=== PATIENT | male | born 1975 | race Caucasian/White ===

== ENCOUNTER 2020-03-07 14:01 | Outpatient (REF) | payer OTHER, SELFPAY | END 2020-03-07 14:02 | disposition home or self-care (01) | LOC: HO.BBR 14:01 | PROVIDERS: PCP Internal Medicine; Visit Provider Internal Medicine Gastroenterology | DX: E83.110 Hereditary hemochromatosis (principal) | CPT/HCPCS: 99195 ==

== ENCOUNTER 2020-04-08 14:38 | Outpatient (REF) | payer OTHER, SELFPAY | END 2020-04-08 14:39 | disposition home or self-care (01) | LOC: HO.BBR 14:38 | PROVIDERS: Visit Provider Internal Medicine Gastroenterology | DX: Z13.89 Encounter for screening for other disorder (principal) ==

== ENCOUNTER 2020-04-08 15:15 | Outpatient (REF) | payer SELFPAY ==
[2020-04-08 16:34] LABS: Cholesterol 171 mg/dL
[2020-04-08 17:24] LABS: SARS COV2 IgG Negative (Negative)
== END 2020-04-08 15:16 | disposition home or self-care (01) ==
LOC: HO.LNC 15:15
PROVIDERS: Visit Provider Pathology Anatomic Pathology & Clinical Pathology
DX: E78.00 Pure hypercholesterolemia, unspecified (principal); Z20.828 Contact with and (suspected) exposure to other viral communicable diseases
CPT/HCPCS: 82465; 86769

== ENCOUNTER 2020-05-08 14:00 | Outpatient (REF) | payer OTHER, SELFPAY | END 2020-05-08 14:01 | disposition home or self-care (01) | LOC: HO.BBR 14:00 | PROVIDERS: Visit Provider Internal Medicine Gastroenterology | DX: Z13.89 Encounter for screening for other disorder (principal) ==

== ENCOUNTER 2020-05-08 14:20 | Outpatient (REF) | payer SELFPAY ==
[2020-05-08 15:13] LABS: Cholesterol 166 mg/dL
== END 2020-05-08 14:21 | disposition home or self-care (01) ==
LOC: HO.LNC 14:20
PROVIDERS: Visit Provider Pathology Anatomic Pathology & Clinical Pathology
DX: Z13.89 Encounter for screening for other disorder (principal)
CPT/HCPCS: 82465

== ENCOUNTER 2020-06-12 14:03 | Outpatient (REF) | payer OTHER, SELFPAY | END 2020-06-12 14:04 | disposition home or self-care (01) | LOC: HO.BBR 14:03 | PROVIDERS: Visit Provider Internal Medicine Gastroenterology | DX: Z13.89 Encounter for screening for other disorder (principal) ==

== ENCOUNTER 2020-11-04 15:11 | Outpatient (REF) | payer OTHER, SELFPAY | END 2020-11-04 15:12 | disposition home or self-care (01) | LOC: HO.BBR 15:11 | PROVIDERS: Visit Provider Nurse Practitioner | DX: Z13.89 Encounter for screening for other disorder (principal) ==

== ENCOUNTER 2021-01-13 13:01 | Outpatient (REF) | payer OTHER, SELFPAY | END 2021-01-13 13:02 | disposition home or self-care (01) | LOC: HO.BBR 13:01 | PROVIDERS: Visit Provider Nurse Practitioner | DX: Z13.89 Encounter for screening for other disorder (principal) ==

== ENCOUNTER 2021-10-02 12:00 | Outpatient (REF) | payer OTHER, SELFPAY | END 2021-10-02 12:01 | disposition home or self-care (01) | LOC: HO.BBR 12:00 | PROVIDERS: Visit Provider Internal Medicine Gastroenterology | DX: Z13.89 Encounter for screening for other disorder (principal) ==

== ENCOUNTER 2021-11-03 13:09 | Outpatient (REF) | payer OTHER, SELFPAY | END 2021-11-03 13:10 | disposition home or self-care (01) | LOC: HO.BBR 13:09 | PROVIDERS: Visit Provider Internal Medicine Gastroenterology | DX: Z13.89 Encounter for screening for other disorder (principal) ==

== ENCOUNTER 2021-12-10 14:02 | Outpatient (REF) | payer OTHER, SELFPAY | END 2021-12-10 14:03 | disposition home or self-care (01) | LOC: HO.BBR 14:02 | PROVIDERS: Visit Provider Internal Medicine Gastroenterology | DX: Z13.89 Encounter for screening for other disorder (principal) ==

== ENCOUNTER 2022-02-01 13:13 | Outpatient (REF) | payer OTHER, SELFPAY | END 2022-02-01 13:14 | disposition home or self-care (01) | LOC: HO.BBR 13:13 | PROVIDERS: Visit Provider Internal Medicine Gastroenterology | DX: Z13.89 Encounter for screening for other disorder (principal) ==

== ENCOUNTER 2022-03-04 13:18 | Outpatient (REF) | payer OTHER, SELFPAY | END 2022-03-04 13:19 | disposition home or self-care (01) | LOC: HO.BBR 13:18 | PROVIDERS: Visit Provider Internal Medicine Gastroenterology | DX: Z13.89 Encounter for screening for other disorder (principal) ==

== ENCOUNTER 2022-09-17 12:00 | Outpatient (REF) | payer OTHER, SELFPAY | END 2022-09-17 12:01 | disposition home or self-care (01) | LOC: HO.BBR 12:00 | PROVIDERS: Visit Provider Student in an Organized Health Care Education/Training Program | DX: Z13.89 Encounter for screening for other disorder (principal) ==

== ENCOUNTER 2022-10-05 15:17 | Outpatient (REF) | payer OTHER, SELFPAY | END 2022-10-05 15:18 | disposition home or self-care (01) | LOC: HO.BBR 15:17 | PROVIDERS: Visit Provider Student in an Organized Health Care Education/Training Program | DX: Z13.89 Encounter for screening for other disorder (principal) ==

== ENCOUNTER 2022-10-20 15:04 | Outpatient (REF) | payer OTHER, SELFPAY | END 2022-10-20 15:05 | disposition home or self-care (01) | LOC: HO.BBR 15:04 | PROVIDERS: Visit Provider Student in an Organized Health Care Education/Training Program | DX: Z13.89 Encounter for screening for other disorder (principal) ==

== ENCOUNTER 2022-11-02 13:10 | Outpatient (REF) | payer OTHER, SELFPAY | END 2022-11-02 13:11 | disposition home or self-care (01) | LOC: HO.BBR 13:10 | PROVIDERS: Visit Provider Student in an Organized Health Care Education/Training Program | DX: Z13.89 Encounter for screening for other disorder (principal) ==

== ENCOUNTER 2022-12-01 14:08 | Outpatient (REF) | payer OTHER, SELFPAY | END 2022-12-01 14:09 | disposition home or self-care (01) | LOC: HO.BBR 14:08 | PROVIDERS: Visit Provider Student in an Organized Health Care Education/Training Program | DX: Z13.89 Encounter for screening for other disorder (principal) ==

== ENCOUNTER 2022-12-15 14:59 | Outpatient (REF) | payer OTHER, SELFPAY | END 2022-12-15 15:00 | disposition home or self-care (01) | LOC: HO.BBR 14:59 | PROVIDERS: Visit Provider Student in an Organized Health Care Education/Training Program | DX: Z13.89 Encounter for screening for other disorder (principal) ==

== ENCOUNTER 2023-01-06 15:00 | Outpatient (REF) | payer OTHER, SELFPAY | END 2023-01-06 15:01 | disposition home or self-care (01) | LOC: HO.BBR 15:00 | PROVIDERS: Visit Provider Student in an Organized Health Care Education/Training Program | DX: Z13.89 Encounter for screening for other disorder (principal) ==

== ENCOUNTER 2023-01-20 14:52 | Outpatient (REF) | payer OTHER, SELFPAY | END 2023-01-20 14:53 | disposition home or self-care (01) | LOC: HO.BBR 14:52 | PROVIDERS: Visit Provider Student in an Organized Health Care Education/Training Program | DX: Z13.89 Encounter for screening for other disorder (principal) ==

== ENCOUNTER 2023-02-03 14:59 | Outpatient (REF) | payer OTHER, SELFPAY | END 2023-02-03 15:00 | disposition home or self-care (01) | LOC: HO.BBR 14:59 | PROVIDERS: Visit Provider Student in an Organized Health Care Education/Training Program | DX: Z13.89 Encounter for screening for other disorder (principal) ==

== ENCOUNTER 2023-10-03 15:11 | Outpatient (REF) | payer OTHER, SELFPAY | END 2023-10-03 15:12 | disposition home or self-care (01) | LOC: HO.BBR 15:11 | PROVIDERS: Visit Provider Internal Medicine Hepatology | DX: Z13.89 Encounter for screening for other disorder (principal) ==

== ENCOUNTER 2024-01-19 12:31 | Outpatient (REF) | payer OTHER, SELFPAY | END 2024-01-19 12:32 | disposition home or self-care (01) | LOC: HO.BBR 12:31 | PROVIDERS: Visit Provider Internal Medicine Hepatology | DX: Z13.89 Encounter for screening for other disorder (principal) ==

== ENCOUNTER 2024-03-20 14:05 | Outpatient (REF) | payer OTHER, SELFPAY | END 2024-03-20 14:06 | disposition home or self-care (01) | LOC: HO.BBR 14:05 | PROVIDERS: Visit Provider Internal Medicine Hepatology | DX: Z13.89 Encounter for screening for other disorder (principal) ==

== ENCOUNTER 2024-07-10 13:59 | Outpatient (REF) | payer OTHER, SELFPAY | END 2024-07-10 14:00 | disposition home or self-care (01) | LOC: HO.BBR 13:59 | DX: Z13.89 Encounter for screening for other disorder (principal) ==

== ENCOUNTER 2024-09-27 12:03 | Outpatient (REF) | payer OTHER, SELFPAY | END 2024-09-27 12:04 | disposition home or self-care (01) | LOC: HO.BBR 12:03 | PROVIDERS: Visit Provider Internal Medicine Hepatology | DX: Z13.89 Encounter for screening for other disorder (principal) ==

== ENCOUNTER 2025-03-21 10:02 | Outpatient (REF) | payer OTHER, SELFPAY | END 2025-03-21 10:03 | disposition home or self-care (01) | LOC: HO.BBR 10:02 | PROVIDERS: Visit Provider Internal Medicine Hepatology | DX: Z13.89 Encounter for screening for other disorder (principal) ==